=== PATIENT | female | born 1970 | race Caucasian/White ===

== ENCOUNTER 2020-11-13 13:56 | Outpatient (CLI) | payer OTHER, SELFPAY ==
[2020-11-13 14:47] LABS: SARS-CoV-2 Ag Negative (Negative)
== END 2020-11-13 13:57 | disposition home or self-care (01) ==
LOC: CHSLAB 14:05
PROVIDERS: PCP Family Medicine; Visit Provider Physician Assistant
DX: J32.9 Chronic sinusitis, unspecified (principal); Z20.828 Contact with and (suspected) exposure to other viral communicable diseases
CPT/HCPCS: 87426

== ENCOUNTER 2024-10-22 15:45 | Outpatient (CLI) | payer OTHER, SELFPAY ==
--- NOTE | ~2024-10-22 | MR_ITS ---
EXAMINATION: MR foot LT wo/w con DATE: 10/22/2024 16:43 INDICATION: Mass of soft tissue, left lower extremity. TECHNIQUE: Magnetic resonance imaging (MRI) of the left foot was performed without and with 14 mL Mul tiHance intravenous contrast. COMPARISON: None. FINDINGS: There is moderate hallux valgus. There is linear artifact in first proximal phalanx, likely a screw. There is an old healed fracture of diaphysis of second metatarsal. There is moderate osteoa rthritis of first metatarsophalangeal joint and mild osteoarthritis of some of the interphalangeal roseann ints. Lisfranc ligament is normal. The flexor and extensor tendons are normal. There is a skin marker at the plantar aspect of the second digit. IMPRESSION: 1. No abnormal soft tissue mass identified. 2. Moderate hallux valgus. 3. Polyarticular osteoarthritis. Reviewed, dictated and finalized at location A. [employer]
== END 2024-10-22 15:46 | disposition home or self-care (01) ==
PROVIDERS: PCP Registered Nurse; Visit Provider Registered Nurse
DX: M79.89 Other specified soft tissue disorders (principal); M19.072 Primary osteoarthritis, left ankle and foot; M20.12 Hallux valgus (acquired), left foot
CPT/HCPCS: 73720; A9577